=== PATIENT | male | born 1960 | race Caucasian/White ===

== ENCOUNTER 2017-06-21 09:33 | Outpatient (CLI) | payer OTHER ==
--- NOTE | 2017-06-21 12:12 | Fluoroscopy Report ---
AIR CONTRAST BARIUM ENEMA: History: Anal pain, rectal pain. The bowel is coated with barium and distended with air. The bowel contours are smooth and there is a normal haustral pattern. No inflammatory changes, fixed filling defects or evidence of neoplasm is seen. There is normal filling of the appendix. IMPRESSION: Normal study.
== END 2017-06-21 09:34 | disposition home or self-care (01) ==
LOC: FLUORO 09:33
PROVIDERS: ATTEND Internal Medicine
DX: K62.89 Other specified diseases of anus and rectum (principal)
CPT/HCPCS: 74280

== ENCOUNTER 2017-11-15 10:48 | Outpatient (CLI) | payer OTHER ==
--- NOTE | 2017-11-15 11:50 | XRay Report ---
ROUTINE CHEST, TWO VIEWS: HISTORY: Chest pain, cough. The trachea, heart, mediastinal contour, and lung cole are unremarkable. There is mild scoliosis with multilevel degenerative disc disease. No acute bony injury. IMPRESSION: Mild scoliosis, otherwise, unremarkable chest x-ray.
== END 2017-11-15 10:49 | disposition home or self-care (01) ==
LOC: XRAY 10:48
PROVIDERS: ATTEND Internal Medicine
DX: R05 Cough (principal); R07.9 Chest pain, unspecified; M41.84 Other forms of scoliosis, thoracic region; M51.34 Other intervertebral disc degeneration, thoracic region
CPT/HCPCS: 71046

== ENCOUNTER 2019-12-30 09:52 | Emergency (ER) | payer OTHER ==
[2019-12-30 10:01] VITALS: BP 130/74
--- NOTE | 2019-12-30 12:09 | Emergency Department Report ---
ED Rash HPI - [facility] Chief Complaint: Skin Rash Stated Complaint: RASH ON CHEST Time Seen by Provider: 12/30/19 11:04 Duration: 2 Days Rash Symptoms: Yes Itching, Yes Blistering, No Facial Swelling, No Tongue/Oral Swelling, No Breathing Difficulties, No Choking Sensation, No Wheezing/Dyspnea, No Peeling, No Fever, No Lightheaded, No Malaise, No Myalgias Severity: moderate Other History: This is a 59-year-old male who presents to the ED complaining of red, painful rash to his right chest going across his back. Patient states he noticed this 2 days ago. Patient denies any fever/chills/nausea vomiting ED Review of Systems ROS: Stated complaint: RASH ON CHEST Other details as noted in HPI ED Past Medical Hx - Past Medical History Previous Medical History?: Yes Hx Hypertension: Yes - Surgical History Past Surgical History?: No - Social History Smoking Status: Never Smoker Substance Use Type: Alcohol - Medications Home Medications: Home Medications Medication Instructions Recorded Confirmed Last Taken Type Acyclovir [Zovirax Tab] 800 mg PO TID #30 tab 12/30/19 Unknown Rx Ibuprofen [Motrin] 800 mg PO Q8HR #30 tablet 12/30/19 Unknown Rx Rash Exam - Exam General: Vital signs noted. No distress. Alert and acting appropriately. HEENT: No Periorbital Edema, No Conjuctival Injection, No Chemosis, No Perioral Edema, No Tongue Edema, No Uvular Edema, No Compromised Airway, No Drooling Lungs: Yes Good Air Exchange (Normal Breath Sounds), No Wheezes, No Ronchi, No Stridor, No Cough, No Labored Respirations, No Retractions, No Use of Accessory Muscles, No Other Abnormal Lung Sounds Heart: Yes Regular, No Murmur Skin: Yes Urticarial Rash, Yes Maculopapular Rash, Yes Erythema, Yes Other (A longer dermatome of the right 6- 7 costal), No Morbilliform rash, No Bulla(e), No Excoriations, No Weeping, No Tenderness, No Edema, No Encrustations Other: Positive: Abdomen Normal, Neurologic Normal, Musculoskeletal Normal ED Course Vital Signs 12/30/19 12/30/19 09:58 10:01 Temperature 98.5 F 97.6 F Pulse Rate 83 81 Respiratory 18 18 Rate Blood Pressure 130/74 130/74 O2 Sat by Pulse 100 100 Oximetry ED Medical Decision Making - Medical Decision Making This 59-year-old male presents with herpes zoster rash. Rash was noted along the dermatome of the chest going across the back. Discussed with patient that this is contagious and needs to apply cortisone cream as needed for itching. Patient sent home on antiviral and pain medication. Vital signs are normal patient is in no acute distress Critical care attestation.: If time is entered above; I have spent that time in minutes in the direct care of this critically ill patient, excluding procedure time. ED Disposition Clinical Impression: Shingles rash, Herpes dermatitis Disposition: - TO HOME OR SELFCARE Is pt being admited?: No Does the pt Need Aspirin: No Condition: Stable Instructions: Herpes Zoster (ED) Additional Instructions: Make sure to follow up with the primary care physician as discussed. Take all your medications as you've been prescribed. If you have any worsening symptoms or develop new symptoms please return to ED immediately. Prescriptions: Ibuprofen [Motrin] 800 mg PO Q8HR #30 tablet Acyclovir [Zovirax Tab] 800 mg PO TID #30 tab Referrals: [facility] [Outside] - 3-5 Days [facility] [Outside] - 3-5 Days [facility] [Outside] - 3-5 Days Forms: Work/School Release Form(ED) Time of Disposition: 12:09
== END 2019-12-30 12:34 | disposition home or self-care (01) ==
LOC: ED 09:52
DX: B00.1 Herpesviral vesicular dermatitis (principal); B02.9 Zoster without complications; Z79.899 Other long term (current) drug therapy; Z88.0 Allergy status to penicillin

== ENCOUNTER 2022-02-13 11:44 | Outpatient (CLI) | payer OTHER ==
--- NOTE | 2022-02-13 13:54 | XRay Report ---
CHEST 2 VIEWS INDICATION / CLINICAL INFORMATION: R05.1, ACUTE COUGH. COMPARISON: 11/15/17. FINDINGS: SUPPORT DEVICES: None. HEART / MEDIASTINUM: The heart size and pulmonary vasculature are normal. LUNGS / PLEURA: There is mild patchy groundglass parenchymal opacity in the left mid lung/perihilar r egion centrally on the PA view, new since the prior study. The right lung is clear. No pleural effusi on. No pneumothorax. ADDITIONAL FINDINGS: There is mild thoracolumbar scoliosis and spondylosis. IMPRESSION: Patchy groundglass parenchymal disease in the left perihilar region is nonspecific, but l ikely inflammatory. Atypical causes of pneumonia should be considered. Signer Name: Floyd Coburn MD Signed: 02/13/2022 1:50 PM Workstation Name: [id number]
== END 2022-02-13 11:45 | disposition home or self-care (01) ==
LOC: XRAY 11:44
PROVIDERS: ATTEND Internal Medicine
DX: J98.4 Other disorders of lung (principal); R05.1 Acute cough; M47.814 Spondylosis without myelopathy or radiculopathy, thoracic region
CPT/HCPCS: 71046